=== PATIENT | female | born 1950 | race Caucasian/White ===

== ENCOUNTER 2017-06-30 13:08 | Emergency (ER) | payer OTHER ==
[~2017-06-30] VITALS: Ht 157.5 cm; Wt 56.8 kg
[2017-06-30] MEDS ORDERED: SOD CHLORIDE 0.9% 1,000 ML IV STA (13:29)
[2017-06-30] MEDS ORDERED: LEVETIRACETAM 1000 MG (PMX) 100 ML IVPB STA (13:29)
[2017-06-30 13:35] VITALS: Ht 157.5 cm; Wt 56.8 kg
--- NOTE | 2017-06-30 14:07 | RADRPT ---
PROCEDURE: CT Brain without contrast. CLINICAL INDICATION: Seizure. TECHNIQUE: A CT of the brain was performed on multidetector high-resolution CT scanner utilizing a xial sections from the skull base through the vertex without contrast. The scan was reviewed in sof t tissue brain and high frequency resolution bone algorithm windows. Images were reviewed on a high -resolution PACS workstation. One or more the following does reduction techniques were utilized: Aut omated exposure control, adjustment of the mA/ or kV according to patient's size, or use of iterativ e reconstruction technique. The exam CTDI = 43.38 mGy and the DLP = 720.23 mGy-cm. COMPARISON: None available. FINDINGS: The ventricles and sulci are mildly prominent indicative of volume loss. There is no intracranial h emorrhage, mass effect or midline shift. No abnormal intra-axial or extra-axial fluid collections a re seen. The campa/white matter differentiation is preserved. There are minimal scattered foci of hypoattenuation in the white matter, which are nonspecific in et iology but likely reflect chronic small vessel ischemic changes. There are minimal intracranial vas cular calcifications consistent with atherosclerosis. The visualized paranasal sinuses are essential ly clear. IMPRESSION: 1. No acute intracranial hemorrhage, transcortical infarction or mass effect. 2. Minimal intracranial atherosclerosis and chronic small vessel ischemic changes. 3. Mild generalized cerebral volume loss. RPTAT: HFN .Jorge Morrell MD, MD Date Time Electronically viewed and signed by .Jorge Morrell MD, MD on 06/30/2017 14:07 .N/
[2017-06-30 14:22] LABS: BASOPHIL # 0.1 10^3/ul (0.0-0.1); BASOPHILS % 0.5 % (0.0-2.0); EOSINOPHILS # 0.2 10^3/ul (0.0-0.5); EOSINOPHILS % 1.4 % (0.0-7.0); HEMATOCRIT 46.1 % (37.0-47.0); HEMOGLOBIN 14.4 g/dl (12.0-16.0); LYMPHOCYTES # 1.9 10^3/ul (0.8-2.9); LYMPHOCYTES % 16.6 % (15.0-51.0); MEAN CORPUSCULAR HEMOGLOBIN 29.4 pg (29.0-33.0); MEAN CORPUSCULAR HGB CONC 31.2 g/dl (32.0-37.0); MEAN CORPUSCULAR VOLUME 94.1 fl (82.0-101.0); MEAN PLATELET VOLUME 10.4 fl (7.4-10.4); MONOCYTE # 0.6 10^3/ul (0.3-0.9); MONOCYTES % 5.4 % (0.0-11.0); NEUTROPHIL # 8.6 10^3/ul (1.6-7.5); NEUTROPHILS % 75.7 % (39.0-77.0); PLATELET COUNT 333 10^3/UL (140-415); RED CELL DISTRIBUTION WIDTH 12.4 % (11.5-14.5); WHITE BLOOD COUNT 11.4 10^3/ul (4.8-10.8)
[2017-06-30 14:41] LABS: CALCIUM 10.7 mg/dl (8.4-10.2); CREATININE 1.09 mg/dl (0.44-1.00)
[2017-06-30 14:43] LABS: POTASSIUM 5.2 mmol/L (3.5-5.1)
[2017-06-30 15:35] VITALS: BP 136/80; PULSE 78; RESP 18; TEMP 98.4
[2017-06-30] MEDS ORDERED: LIT300 PO (15:50)
[2017-06-30] MEDS ORDERED: LEVO25TA53 PO (15:50)
[2017-06-30] MEDS ORDERED: PROP10TA6 PO (15:51)
[2017-06-30] MEDS ORDERED: BUPR300T36 PO (15:51)
[2017-06-30] MEDS ORDERED: LEVE500S8 PO (16:28)
--- NOTE | 2017-06-30 16:41 | ERD ---
ER Documentation Chief Complaint Date/Time DATE: 06/30/17 TIME: 16:34 Chief Complaint BROUGHT IN VIA EMS DUE TO EXPERIENCED SEIZURE WHEN WITH FRIEND HPI This 66-year-old female came the emergency room when she had a witnessed seizure at a restaurant while she was with a friend. There is generalized tonic -clonic shaking going on for just a couple of minutes. She is mildly postictal in the ambulance. Currently she is alert and oriented 3. She does not remember the incident. She says she has never had a seizure and has no medical problems except for occasional depression. She does not have any headache is felt fine lately and feels well now. ROS All systems reviewed and are negative except as per history of present illness. Medications Home Meds Active Scripts Levetiracetam* (Keppra*) 500 Mg/5 Ml Solution, 500 MG PO BID, #60 BOTTLE Prov:PAUL ROMERO DO 06/30/17 Reported Medications Propranolol Hcl* (Propranolol Hcl*) 10 Mg Tablet, 10 MG PO BID, TAB 06/30/17 Bupropion Hcl* (Bupropion XL*) 300 Mg Tab.sr.24h, 300 MG PO DAILY, TAB.SA 06/30/17 [place] Carbonate* ([place]*) 300 Mg Cap, 300 MG PO TID, CAP 06/30/17 Levothyroxine Sodium* (Levothyroxine Sodium*) 25 Mcg Tablet, 25 MCG PO BEFORE BREAKFAST, #30 TAB 06/30/17 Allergies Allergies: Coded Allergies: No Known Allergy (Unverified , 06/30/17) PMhx/Soc Medical and Surgical Hx: Unable to obtain Hx Alcohol Use: No Hx Substance Use: No Hx Tobacco Use: No Smoking Status: Never smoker Physical Exam Vitals Vital Signs Date Time Temp Pulse Resp B/P Pulse Ox O2 Delivery O2 Flow Rate FiO2 06/30/17 13:35 98.4 80 18 140/87 98 Physical Exam Const: [] No distress Head: Atraumatic Eyes: Normal Conjunctiva EOMI, PERRLA ENT: Normal External Ears, Nose and Mouth. Neck: Full range of motion..~ No meningismus. Resp: Clear to auscultation bilaterally Cardio: Regular rate and rhythm, no murmurs Abd: Soft, non tender, non distended. Normal bowel sounds Skin: No petechiae or rashes Back: No midline or flank tenderness Ext: No cyanosis, or edema Neur: Awake and alert and oriented 3, cranial 2 through 12 intact, no cerebellar deficits, normal gait Psych: Normal Mood and Affect Result Diagram: 06/30/17 1405 06/30/17 1405 Results 24 hrs Laboratory Tests Test 06/30/17 14:05 White Blood Count 11.410^3/ul Red Blood Count 4.9010^6/ul Hemoglobin 14.4g/dl Hematocrit 46.1% Mean Corpuscular Volume 94.1fl Mean Corpuscular Hemoglobin 29.4pg Mean Corpuscular Hemoglobin Concent 31.2g/dl Red Cell Distribution Width 12.4% Platelet Count 21187^3/UL Mean Platelet Volume 10.4fl Neutrophils % 75.7% Lymphocytes % 16.6% Monocytes % 5.4% Eosinophils % 1.4% Basophils % 0.5% Nucleated Red Blood Cells % 0.0/100WBC Neutrophils # 8.610^3/ul Lymphocytes # 1.910^3/ul Monocytes # 0.610^3/ul Eosinophils # 0.210^3/ul Basophils # 0.110^3/ul Nucleated Red Blood Cells # 0.010^3/ul Sodium Level 140mmol/L Potassium Level 5.2mmol/L Chloride Level 101mmol/L Carbon Dioxide Level 31mmol/L Anion Gap 13 Blood Urea Nitrogen 15mg/dl Creatinine 1.09mg/dl Glucose Level 84mg/dl Lactic Acid Level 3.7mmol/L Calcium Level 10.7mg/dl Current Medications Medications (Trade) Dose Ordered Sig/Luis Route PRN Reason Start Time Stop Time Status Last Admin Dose Admin Sodium Chloride 1,000 ml @ 1,000 mls/hr Q1H STAT IV 06/30/17 13:29 06/30/17 14:28 DC 06/30/17 14:58 Levetiracetam (Keppra 1,000mg/ 100ml (Pmx)) 100 ml @ 400 mls/hr ONCE STAT IVPB 06/30/17 13:29 06/30/17 13:43 DC 06/30/17 14:55 Procedures/MDM 66-year-old female with new onset seizure. CAT scan is negative for any brain tumor or other abnormality. Patient's lactic acid is appropriately elevated. She seems to have very mild renal insufficiency with very mild elevated potassium. She was given a liter of IV normal saline as well as a gram of Keppra. I told her that she should be admitted and she refuses admission. She is going to sign out AGAINST MEDICAL ADVICE. She also had an episode where she tripped on her shoe and fell the emergency room with no injury. She has been ambulating since without difficulty. She agrees to see her primary care doctor tomorrow. CT head Interpretation: No acute process, no widened mediastinum, no pneumothorax, no infiltrate, no fractures. Departure Diagnosis: Primary Impression: New onset seizure Additional Impression: Renal insufficiency Condition: Fair Patient Instructions: Seizure, New Onset, Unk Cause [Adult] Additional Instructions: Call your primary care doctor TOMORROW for a SAME-DAY APPOINTMENT.Tell the law secretary that you were referred from this facility.Call again if your condition worsens before your appointment time. PAUL ROMERO DO Jun 30, 2017 16:41
== END 2017-06-30 17:34 | disposition left against medical advice (07) ==
LOC: E/R 13:08
DX: R56.9 Unspecified convulsions (principal); N28.9 Disorder of kidney and ureter, unspecified
CPT/HCPCS: 36415; 70450; 80048; 83605; 85025; 96374; 99285; J1953; J7030